=== PATIENT | male | born 1960 | race Caucasian/White ===

== ENCOUNTER 2020-11-01 05:30 | Emergency (ER) | payer OTHER | END 2020-11-01 07:56 | disposition home or self-care (01) | LOC: ER1 05:30 | DX: S61.216A Laceration without foreign body of right little finger without damage to nail, initial encounter (principal); Z23 Encounter for immunization; W26.8XXA Contact with other sharp object(s), not elsewhere classified, initial encounter; Y92.69 Other specified industrial and construction area as the place of occurrence of the external cause; Y99.0 Civilian activity done for income or pay | CPT/HCPCS: 12001; 90471; 90714; 99282 ==

== ENCOUNTER 2021-01-09 12:30 | Emergency (ER) | payer BC ==
[2021-01-09 14:01] LABS: HEMOGLOBIN 16.9 gm/dl (14.0-17.5); RED BLOOD COUNT 5.29 M/UL (4.20-5.50); WHITE BLOOD COUNT 2.5 K/UL (4.5-11.0)
[2021-01-09 14:22] LABS: BUN/CREATININE RATIO 18 (0-10)
[2021-01-09] MEDS ORDERED: VIBRAMYCIN 100100 MG PO (16:13)
[2021-01-09] MEDS ORDERED: ZITHROMAX250 MG PO (16:13)
[2021-01-12 04:10] LABS: HBSAG SCREEN Negative (Negative); HEP A AB, IGM Negative (Negative); HEP B CORE AB, IGM Negative (Negative); HEP C VIRUS AB <0.1 (0.0-0.9)
[2021-01-14 15:12] LABS: E. CHAFFEENSIS (HME) IGG TITER Negative (Neg:<1:64); E. CHAFFEENSIS (HME) IGM TITER Negative (Neg:<1:20)
[2021-01-15 17:12] LABS: BABESIA MICROTI IGG <1:10 (Neg:<1:10); BABESIA MICROTI IGM <1:10 (Neg:<1:10)
== END 2021-01-09 16:33 | disposition home or self-care (01) ==
LOC: ER1 12:30
PROVIDERS: Emergency Medicine; Physician Assistant
DX: D72.819 Decreased white blood cell count, unspecified (principal); D69.6 Thrombocytopenia, unspecified; R79.89 Other specified abnormal findings of blood chemistry; F17.200 Nicotine dependence, unspecified, uncomplicated; Z20.822 Contact with and (suspected) exposure to COVID-19
CPT/HCPCS: 0240U; 80053; 80074; 81001; 82550; 82553; 85025; 86666; 86753; 99283